=== PATIENT | female | born 1945 | race Caucasian/White ===

== ENCOUNTER 2020-01-21 11:58 | Inpatient (IN) | payer MEDICARE, MEDICAID ==
[2020-01-21] VITALS (7 sets, daily range): BP systolic 97–133; BP diastolic 61–77
[~2020-01-21] VITALS: Ht 152.4 cm; Wt 65.8 kg
--- NOTE | ~2020-01-21 | EMS ---
[place] [address] EMS Patient Care Report Name: ANISHA FRANCO Room: [address] IN [facility]#: [id number] Admission: 01/21/20 Attend Phys: Marya Stahl MD Discharge: Date of : 45 Report #: [id number] THIS REPORT FOR: //name// Report Transmitted: 01/21/2020 14:07 EMS Care Summary [facility]ident [id number] @ 01/21/2020 10:[address] [place] [address] Patient JAMES FRANCO Female, 74 Years 1945 Patient Address [address] [place] [address] Patient History Dementia,Bipolar II Disorder,Hypothyroidism,Intellectual Disabilities, Patient Allergies Other drug allergy, Patient Medications None Reported, Chief Complaint Low Oxygen Saturation Disposition Transported [place] Dispatch Reason Breathing Problem Transported To [facility] Narrative Dispatch: [facility] was dispatched for a female patient who has a low oxygen saturation with a possible covid exposure. Med 1 copied tones and had a delayed en route time due to full covid-19 PPE precautions. Med 1 went en route emergent [place] [address] EMS Patient Care Report Name: ANISHA FRANCO Room: [address] IN [facility]#: [id number] Admission: 01/21/20 Attend Phys: Marya Stahl MD Discharge: Date of : 45 Report #: [id number] Chief Complaint/Condition: Med 1 arrived on scene to find the patient sitting upright in her chair in the living room. Patient is non verbal/incomprehensible sounds (normal for patient). The alf nurses stated that the patient had an O2 reading of 82% and it "just dropped below 88%." Patient presented with rhonchus lung sounds bilaterally, tachypnea, and an O2 saturation of 89% on room air (EMS pulse oximeter). History of present illness/KO: Per staff on scene, the patient presented with lowered oxygen saturation and possible covid-19 exposure. After attempting to receive multiple sets of vitals they found her oxygen saturation to be at 82% and, per their protocol, 911 is to be called. It was unknown how long the patient had increased respirations or an increased heart rate. Assessment: Airway: Clear, equal, self maintained. Breathing: Rhonchi bilaterally, non labored, tachypnea noted. Circulation: Skin is pink, warm, and dry. Strong radial pulse. Disability: A&OX1 (normal for patient, but increased lethargy noted later during contact). Exposure: No life threats were found. See section for further. Reason for ambulance: Patient lives in a alf and her nurse stated that the patients O2 saturation dropped below 88% and she needed to be transported for further assessment. The initial patient plan was for transport to [facility]. Due to a possible cardiac event, that destination was changed to [place]. EMS then diverted to [place] due to increased patient lethargy, sustained SVT, and no IV access despite multiple attempts. Lights and sirens utilized en route to facility due to patient presentation. Treatments: ALS assessment. ETCO2 canula at 6 liters delivered successfully. Obstructed waveform noted. Duoneb treatment performed in ambulance with open doors and ventilation system running. 3 IV attempts made unsuccessfully. 12 lead EKG showing SVT with possible underlying AFIB RVR. Patient had continuous arm and leg movements which made obtaining a clear EKG picture difficult. See section for further. Summary: [facility] was dispatched for a female patient who had a low oxygen saturation and a possible covid exposure. Med 1 had a delayed en route time due to covid PPE precautions. Med 1 went en route emergent and arrived on scene. Med 1 arrived on scene to find the patient sitting upright in her recliner. Patient had a cough and a surgical mask was immediately placed onto the patient. My partner attached the pulse ox and it read 89%. The in home nurse stated she wanted the patient transported for further assessment and treatment. The patient was placed onto our cot and was placed on 6 [place] [address] EMS Patient Care Report Name: ANISHA FRANCO Room: [address] IN [facility]#: [id number] Admission: 01/21/20 Attend Phys: Marya Stahl MD Discharge: Date of : 45 Report #: [id number] oxygen via ETCO2 nasal canula. The patient was then placed into the ambulance for further assessment. A 12 lead EKG was taken, and SVT was noted. Patient had rhonchus lung sounds and a duoneb treatment was started while the doors were open. We began our transport to [facility] following completion of the duoneb treatment. During transport, my partner and I attempted multiple times at gaining vascular access and did not succeed. Patient started to become lethargic (sustained SVT) during transport so we decided to upgrade and change destinations to [place] [place] in [place] due to closer cardiac care. Patient had reached a heart rate in the 170's and started to become lethargic. Radio report was given and no questions or orders were given. Med 1 arrived at destination and report was given to the RN. The patient was sheet transferred over to bed. Signatures and paperwork received, Med 1 returned back to [facility]. Initial Vitals @11:26R: 30,EtCO2: 43, @11:52P: 39,R: 29,BP: 108/61,EtCO2: 25,SpO2: 81, @11:41P: 146,R: 26,EtCO2: 11, @11:36P: 148,R: 32,BP: 117/74,EtCO2: 38,VT Suspected: false @11:20R: 22,EtCO2: 44,VT Suspected: false @11:46P: 161,R: 17,BP: 108/71,EtCO2: 30,SpO2: 79,VT Suspected: false @11:06P: 0,R: 35,BP: 146/96,GCS: 10,EtCO2: 17,Revised Trauma: 10,VT Suspected: false @11:11P: 164,R: 32,EtCO2: 43, @11:19MI Suspected: false Assessments @11:10MENTAL:Confused,Person Oriented,SKIN:HEENT:LUNG SOUNDS:ABDOMEN:PELVIS//GI:EXTREMITIES:PULSE:Radial: 2+ Normal,NEURO:@11:30MENTAL:Confused,Person Oriented,SKIN:HEENT:LUNG SOUNDS:ABDOMEN:PELVIS//GI:EXTREMITIES:PULSE:Radial: 2+ Normal,NEURO: Impression COVID-19 - Exposure to confirmed patient Procedures @11:1912-Lead ECGResponse: UnchangedSucceeded@11:2012-Lead ECGResponse: UnchangedSucceeded@11:3612-Lead ECGResponse: UnchangedSucceeded@10:58ALS AssessmentResponse: UnchangedFailed@12:21Saline Lock 0cc (20 ga) Site: Antecubital-LeftResponse: UnchangedFailed@12:21Saline Lock 0cc (20 ga) Site: Forearm-RightResponse: UnchangedFailed@11:07Oxygen FlowRate: 6 Device: CO2 Nasal Cannula Response: UnchangedSucceeded@12:22Saline Lock 0cc (20 ga) Site: Hand-RightResponse: UnchangedFailed@11:08Duoneb - 3 Milliliters (ml) - NebulizedResponse: Improved@11:00Surgical Mask on PatientResponse: [place] [address] EMS Patient Care Report Name: ANISHA FRANCO Room: [place] [address] ADM IN [facility]#: [id number] Admission: 01/21/20 Attend Phys: Marya Stahl MD Discharge: Date of : 45 Report #: [id number] 10:49,Call Received 10:49,Dispatched 10:54,En Route 10:57,On Scene 10:58,At Patient 10:58,ALS Assessment,Response: UnchangedFailed, 11:00,Surgical Mask on Patient,Response: Unchanged 11:06,BP: 146/96 M,PULSE: 0,RR: 35 R,SPO2: Ox,ETCO2: 17 ,BG: ,PAIN: ,GCS: 10, 11:07,Oxygen FlowRate: 6 Device: CO2 Nasal Cannula Response: UnchangedSucceeded, 11:08,Duoneb - 3 Milliliters (ml) - Nebulized,Response: Improved 11:11,BP: / M,PULSE: 164,RR: 32 R,SPO2: Ox,ETCO2: 43 ,BG: ,PAIN: ,GCS: , 11:19,12-Lead ECG,Response: UnchangedSucceeded, 11:19,BP: / M,PULSE: ,RR: R,SPO2: Ox,ETCO2: ,BG: ,PAIN: ,GCS: , 11:19,Depart Scene 11:20,12-Lead ECG,Response: UnchangedSucceeded, 11:20,BP: / M,PULSE: ,RR: 22 R,SPO2: Ox,ETCO2: 44 ,BG: ,PAIN: ,GCS: , 11:26,BP: / M,PULSE: ,RR: 30 R,SPO2: Ox,ETCO2: 43 ,BG: ,PAIN: ,GCS: , 11:36,12-Lead ECG,Response: UnchangedSucceeded, 11:36,BP: 117/74 M,PULSE: 148,RR: 32 R,SPO2: Ox,ETCO2: 38 ,BG: ,PAIN: ,GCS: , 11:41,BP: / M,PULSE: 146,RR: 26 R,SPO2: Ox,ETCO2: 11 ,BG: ,PAIN: ,GCS: , 11:46,BP: 108/71 M,PULSE: 161,RR: 17 R,SPO2: 79 Ox,ETCO2: 30 ,BG: ,PAIN: ,GCS: , 11:52,BP: 108/61 M,PULSE: 39,RR: 29 R,SPO2: 81 Ox,ETCO2: 25 ,BG: ,PAIN: ,GCS: , 11:56,At Destination 12:21,Saline Lock 0cc 20 ga Site: Antecubital-Left,Response: UnchangedFailed, 12:21,Saline Lock 0cc 20 ga Site: Forearm-Right,Response: UnchangedFailed, 12:22,Saline Lock 0cc 20 ga Site: Hand-Right,Response: UnchangedFailed, 12:38,Call Closed Disclaimer v1.1 Copyright 2020 [employer] This EMS Care Summary contains data elements from the applicable legal record (which may be displayed differently). It is designed to provide pertinent information for the following purposes: continuity of care, clinical quality, and state data reporting. The complete legal record is available to ED staff and administrators of the receiving hospital in [employer] Patient Tracker. All data is provided "as is."
[2020-01-21 12:47] LABS: ABSOLUTE MONOCYTES 0.6 thou/uL (0.0-1.2); ABSOLUTE NEUTROPHILS 4.3 thou/uL (1.6-8.1); BASOPHILS 0.3 %; HEMATOCRIT 35.9 % (37.0-47.0); HEMOGLOBIN 11.8 gm/dL (12.0-15.0); LYMPHOCYTES 16.9 %; MCH 31.9 pg (26.0-34.0); MCHC 32.8 g/dL (28.0-37.0); MCV 97.3 fL (80.0-100.0); MONOCYTES 9.9 %; MPV 8.8 fl. (7.2-11.1); NUCLEATED RBCS 0 /100WBC; POLYS 72.9 %; RBC 3.69 mil/uL (4.20-5.00); WBC 5.9 thou/uL (4.0-11.0)
[2020-01-21 12:50] LABS: CALCIUM 8.9 mg/dL (8.5-10.1)
[2020-01-21 12:53] LABS: APTT 29.9 Seconds (25.0-31.3); INR 1.1; PROTIME 11.6 Seconds (9.20-11.50)
[2020-01-21 13:01] LABS: ALBUMIN 2.7 g/dL (3.4-5.0); MAGNESIUM 2.1 mg/dL (1.8-2.4); TOTAL BILIRUBIN 0.2 mg/dL (<0.1-1.0); TOTAL PROTEIN 6.7 g/dL (6.4-8.2)
[2020-01-21 13:10] LABS: URINE BILIRUBIN NEGATIVE (Negative); URINE BLOOD 2+ (Negative); URINE CLARITY CLEAR; URINE COLOR YELLOW; URINE GLUCOSE-RANDOM NEGATIVE (Negative); URINE KETONES NEGATIVE (Negative); URINE LEUKOCYTES-REFLEX NEGATIVE (Negative); URINE NITRITE-REFLEX NEGATIVE (Negative); URINE PROTEIN NEGATIVE (Negative); URINE SPECIFIC GRAVITY 1.025 (1.005-1.030); URINE UROBILINOGEN 0.2 E.U./dl (0.2-1.0)
[2020-01-21 13:17] LABS: BE 0.7 mmol/L (-2 to +3); PCO2 42.7 mmHg (35.0-45.0); PO2 83.5 mmHg (75.0-100.0); pH 7.398 (7.340-7.450)
[2020-01-21 13:18] LABS: PLATELET COUNT* 73 thou/uL (150-400)
[2020-01-21 13:25] LABS: AMORPHOUS URATES Moderate /LPF (None Seen); BACTERIA-REFLEX 1-9 Few /HPF (None Seen); HYALINE CASTS 0-3 Few /LPF (None Seen); MUCUS 0-3 Light strn/LPF (None Seen); SQUAMOUS NONE SEEN /LPF (0-3); URINE RBC 0-2 Rare /HPF (0-2); URINE WBC-REFLEX None Seen /HPF (0-5)
--- NOTE | 2020-01-21 13:45 | NUR ---
ANJANA VELEZ [phone]. THIS IS PT'S PRIMARY CAREGIVER WHO IS WILLING TO ANSWER ANY QUESTIONS.
--- NOTE | 2020-01-21 13:50 | EKG ---
[place] [address] ELECTROCARDIOGRAM REPORT Name: DANIEL FRANCOLENE Room: [facility]#: [id number] Admission: Attend Phys: Discharge: Date of : 45 Date of Service: 01/21/20 1203 Report #: [id number] THIS REPORT FOR: //name// [facility] ED Test Date: 2020-01-21 Test Time: 12:03:30 Pat Name: JAMES FRANCO Department: Room: Gender: F Therapy Tech: [facility] : 1945 Requested By: Nancy Mon Order Number: [id number] MD: Merrick Vigil Measurements Intervals [place] Rate: 168 P: HI: QRS: 31 QRSD: 76 T: 213 QT: 280 QTc: 469 Interpretive Statements Atrial fibrillation with rapid V-rate Abnormal R-wave progression, early transition Repolarization abnormality, prob rate related Baseline wander in lead(s) II,III,aVR,aVL,aVF,V1,V2,V3,V4,V5,V6 No previous ECG available for comparison Electronically Signed On 01-21-2020 13:50:07 CDT by Merrick Vigil [email or web address] <ELECTRONICALLY SIGNED> By: Merrick Vigil MD, FACC 01/21/20 1350 1203 1203 Merrick Vigil MD, FACC /EPI
[2020-01-21] MEDS ORDERED: MONTELUKAST SODI4 M1 PO (14:05)
[2020-01-21] MEDS ORDERED: NOXIFOL-D32500 UNIT PO (14:05)
[2020-01-21] MEDS ORDERED: DESYREL150 MG PO (14:05)
[2020-01-21] MEDS ORDERED: ALLOPURINOL 10100 M3 PO (14:06)
[2020-01-21] MEDS ORDERED: DIVALPROEX SOD250 M1 PO (14:06)
[2020-01-21] MEDS ORDERED: ELIQUIS5 MG PO (14:06)
[2020-01-21] MEDS ORDERED: KEPPRA XR750 MG PO (14:07)
[2020-01-21] MEDS ORDERED: OYST CAL D (14:07)
[2020-01-21] MEDS ORDERED: GAVILAX8.5 GM PO (14:08)
[2020-01-21] MEDS ORDERED: FLONASE 0.05%50 MCG NARES (14:09)
[2020-01-21 20:23] LABS: BE 4.1 mmol/L (-2 to +3); PO2 122.7 mmHg (75.0-100.0); pH 7.391 (7.340-7.450)
[2020-01-21 20:31] LABS: PCO2 50.5 mmHg (35.0-45.0)
[2020-01-21] MEDS ORDERED: DILTIAZEM ER180 M2 PO (21:15)
[2020-01-21] MEDS ORDERED: ARICEPT 5 MG TAB5 MG PO (21:16)
[2020-01-21] MEDS ORDERED: LEVOTHYROXINE100 MC1 PO (21:18)
[2020-01-21] MEDS ORDERED: SERTRALINE HCL100 MG PO (21:19)
[2020-01-21] MEDS ORDERED: ALLEGRA ALLERG180 MG PO (21:20)
[2020-01-21] MEDS ORDERED: PULMICORT0.25 MG/2 INH (21:23)
--- NOTE | 2020-01-21 21:32 | NUR ---
ADMITTED TO ROOM 233 FROM ER. PT SEEN BY HOSPITALIST RELATED TO RAPID RESP RATE AND L0W OXYGEN LEVEL ON SUPPLEMENTAL 02. PT PLACED ON BIPAP AND HAS RESTED BETTER WITH RESPIRATORY RATE OF 22/MINUTE. CARDIOLOGY AND PULMONOLOGY CONSULTATIONS CALLED TO ANSWERING SERVICES. PT PLACED ON CARDIZEM DRIP. I HAVE UPDATED TROLLEY COACH DRIVER RN, PATIENT SISTER AND CARE PROVIDER
[2020-01-21 22:15] LABS: ABSOLUTE LYMPHOCYTES 0.6 thou/uL (0.8-5.3); ABSOLUTE MONOCYTES 0.2 thou/uL (0.0-1.2); ABSOLUTE NEUTROPHILS 3.5 thou/uL (1.6-8.1); BASOPHILS 0.2 %; EOSINOPHILS 0.1 %; HEMATOCRIT 35.3 % (37.0-47.0); HEMOGLOBIN 11.7 gm/dL (12.0-15.0); LYMPHOCYTES 13.2 %; MCH 32.4 pg (26.0-34.0); MCHC 33.1 g/dL (28.0-37.0); MCV 97.7 fL (80.0-100.0); MONOCYTES 5.1 %; MPV 8.9 fl. (7.2-11.1); NUCLEATED RBCS 0 /100WBC; PLATELET COUNT* 57 thou/uL (150-400); POLYS 81.4 %; RBC 3.62 mil/uL (4.20-5.00); RDW-CV 16.1 % (10.5-14.5); WBC 4.2 thou/uL (4.0-11.0)
[2020-01-21 22:22] LABS: CALCIUM 8.3 mg/dL (8.5-10.1); CREATININE 0.9 mg/dL (0.6-1.3); MAGNESIUM 1.8 mg/dL (1.8-2.4)
[2020-01-22] VITALS (21 sets, daily range): BP systolic 89–177; BP diastolic 59–105
[2020-01-22 04:33] LABS: ABSOLUTE LYMPHOCYTES 0.7 thou/uL (0.8-5.3); ABSOLUTE MONOCYTES 0.1 thou/uL (0.0-1.2); ABSOLUTE NEUTROPHILS 4.3 thou/uL (1.6-8.1); BASOPHILS 0.2 %; HEMATOCRIT 35.9 % (37.0-47.0); HEMOGLOBIN 11.9 gm/dL (12.0-15.0); LYMPHOCYTES 14.5 %; MCH 32.4 pg (26.0-34.0); MCHC 33.2 g/dL (28.0-37.0); MCV 97.3 fL (80.0-100.0); MONOCYTES 2.1 %; MPV 9.2 fl. (7.2-11.1); NUCLEATED RBCS 0 /100WBC; PLATELET COUNT* 58 thou/uL (150-400); POLYS 83.2 %; RBC 3.69 mil/uL (4.20-5.00); RDW-CV 16.2 % (10.5-14.5); WBC 5.1 thou/uL (4.0-11.0)
[2020-01-22 04:48] LABS: ALBUMIN 2.5 g/dL (3.4-5.0); CALCIUM 8.5 mg/dL (8.5-10.1); POTASSIUM 4.4 mmol/L (3.5-5.1); TOTAL BILIRUBIN 0.3 mg/dL (<0.1-1.0); TOTAL PROTEIN 6.6 g/dL (6.4-8.2)
--- NOTE | 2020-01-22 06:49 | NUR ---
PT IS ABLE TO COMMUNICATE HER NEEDS TO STAFF WITH A LOT OF DIFFICULTY; SHE IS A+OX0 AND MOSTLY NON-VERBAL; MDs ARE AWARE. SHE CAN OCCASIONALLY FOLLOW COMMANDS AND MOVES AROUND A LOT WHEN SHE IS UNCOMFORTABLE; SHE DOES NOT APPEAR TO BE IN PAIN AND HAS NOT INDICATED THAT SHE WANTS PAIN MEDS WHEN ASKED. PURE WICK IN PLACE AND WORKING WELL. CONTINUOUS BIPAP, PER MD ORDER, MAINTAINED; TOLERATED WELL BY PT UP TO THIS TIME. MANUAL BPs AND NO PULSE OX DUE TO PT MOVING ALMOST CONSTANTLY; MDs AWARE. PULMONOLOGY AND CARDIOLOGY FOLLOWING.
[2020-01-22 08:35] LABS: BE 2.9 mmol/L (-2 to +3); PCO2 49.1 mmHg (35.0-45.0); pH 7.384 (7.340-7.450)
[2020-01-22 08:39] LABS: PO2 142.3 mmHg (75.0-100.0)
--- NOTE | 2020-01-22 09:49 | NUR ---
PT ADMITTED TO TELE UNIT COVID POSITIVE. NURSING STAFF INFORMS THAT THE PT IS 'A&O, BUT MOSTLY NON-VERBAL'. PT RESIDES AT A PRISON. YADI SPOKE TO MERCEDES YEUNG AT THE PRISON AND SHE INFORMS THAT THE PT REQUIRES ASSISTANCE WITH ALL CARES. PT USES A WHEELCHAIR FOR MOBILITY, BECAUSE SHE OFTEN FORGETS HER WALKER AND FALLS. PT ABLE TO TRANSFER WITH ASSIST X1 SHE IS SHAKY WHEN STANDING. PT ABLE TO FEED HERSELF WITH ENCOURAGEMENT AND QUES. PT REQUIRES 2L O2 AT [facility] PRIOR TO ADMIT AND HAD SLEEP STUDY RECENTLY AND RESULTS INDICATED THAT PT NEEDS A CPAP AT [facility] THAT [facility] RN WILL ARRANGE FOR PT AT D/C. PT'S SISTER TORRES ERAZO IS HER GUARDIAN. YADI SPOKE TO TORRES AND SHE CONFIRMS THAT SHE IS HE PT'S GUARDIAN. ANY DECISISON REGARDING THIS PT'S CARE NEED TO BE APPROVED BY TORRES. PLAN FOR PT TO RETURN TO HER PRISON AT D/C. CM WILL REMAIN AVAILABLE TO ASSIST AND FOLLOW FOR D/C PLANNING. TORRES ERAZO (SISTER/GUADIAN) PHONE: [phone] MERCEDES YEUNG AT PRISON PHONE: [phone]
--- NOTE | 2020-01-22 14:30 | NUR ---
PATIENT TRANSFERED TO ICU BED 1 VIA BED. REPORT GIVEN TO PINO. PATIENT JEWELRY PACKED AND SENT WITH PATIENT. PATIENT REMAINS IN AFIB AND TACHYCARDIC, PATIENT ON CARDIZEM DRIP TITRATED TO 20ML/HR AND HAD ONE TIME DOSE OF DIGOXIN AND LASIX ORDERED. PATIENT ON 3L/NC BY RT FOR TRANSFER, BIPAP MOVED TO ICU ROOM. PATIENT HALF-WAY NURSE NOTIFIED OF TRANSFER.
[2020-01-22 16:06] LABS: CALCIUM 8.6 mg/dL (8.5-10.1); CREATININE 1.1 mg/dL (0.6-1.3)
[2020-01-22 16:07] LABS: POTASSIUM 4.8 mmol/L (3.5-5.1)
--- NOTE | 2020-01-22 19:47 | NUR ---
PT RECEIVED FROM TELE AT 1430. ALERT, EXTREMELY FIDGETY AND PULLING ON HER BIPAP MASK BREAKING IT APART. ATIVAN 0.5 MG GIVEN ONCE FOR AGITATION. VSS. TWO ADDITIONAL IV LINES ESTABLISHED BY MERCEDES JONES. PICC POSTPONED PT WAS RESTLESS. ECG SHOWS AFIB RANGING 80-140s. CARDIZEM DRIP CONTD AT 20 MG/HR. MERCEDES YEUNG AT [facility] UPDATED.
[2020-01-23] VITALS (11 sets, daily range): BP systolic 114–163; BP diastolic 55–130
--- NOTE | 2020-01-23 05:20 | NUR ---
ASSUMED CARE AT 1900H, ON BIPAP AT 35% AND TOLERATED BUT RESTLESS AND AGITATED AT TIMES. ASKED FOR PAIN AND SAID YES. PRN MEDS GIVEN FOR PAIN AND ANXIETY. ON CARDIZEM DRIP AND TITRATED. NO DISTRESS AND NO SIEZURE NOTED. PT ALWAYS FAVOR THE LEFT SIDE. CONTINUE MONITORING AND TOWARD GOALS. LATEST CARDIZEM AT 5MG/HR.
[2020-01-23 05:41] LABS: HEMATOCRIT 36.9 % (37.0-47.0); HEMOGLOBIN 12.2 gm/dL (12.0-15.0); MCH 32.3 pg (26.0-34.0); MCHC 33.1 g/dL (28.0-37.0); MCV 97.5 fL (80.0-100.0); MPV 9.9 fl. (7.2-11.1); RBC 3.79 mil/uL (4.20-5.00); RDW-CV 15.9 % (10.5-14.5)
[2020-01-23 05:54] LABS: ALBUMIN 2.7 g/dL (3.4-5.0); CALCIUM 8.6 mg/dL (8.5-10.1); MAGNESIUM 2.2 mg/dL (1.8-2.4); POTASSIUM 4.4 mmol/L (3.5-5.1); TOTAL BILIRUBIN 0.4 mg/dL (<0.1-1.0); TOTAL PROTEIN 6.8 g/dL (6.4-8.2)
--- NOTE | 2020-01-23 10:07 | NUR ---
RIGHT BASILIC VESSEL ACCESSED FOR 5 CUBAN DUAL LUMAN PICC. LINE PRE-TRIMMED TO 38CM AND ADVACNED TO THE ZERO WAYLON WITH NO RESISTANCE MET. UPPER ARM CIRCUMFERENCE ABOVE INSERTION SITE=9 1/2". SHERLOCK MAGNET AND 3 CG CONFIRMATION NOT OBSERVED DUE TO PATIENT IN A-FIB. POST PROCEDURE CHEST X-RAY SHOWS LOWER SVC TERMINATION OF CATHATER TIP. GUIDEWIRE REMOVED, LINE FLUSHED AND INSERTION SITE DRESSED. REPORT REMI PORTILLO RN.
--- NOTE | 2020-01-23 10:45 | NUR ---
BIPAP REMOVED PER PULM. PT PLACED ON O2@5L. PT TALKING AND ALERT. MITTENS REMOVED. WILL CONTINUE TO MONITOR
--- NOTE | 2020-01-23 14:41 | NUR ---
ICU rounds: Off bipap. On Remdisivir. Anxious. Plan return to [facility] [place].
--- NOTE | 2020-01-23 18:25 | NUR ---
PT RESTING IN BED THROUGHOUT SHIFT. PT RESTLESS AND REPOSTIONS FREQUENTLY. PT OFF BIPAP THIS AM. O2@3L NC. AFIB ON MONITOR. PT ABLE TO MAKE NEEDS KNOWN AND ASKS FOR DRINKS, TO GET UP AND TO CHANGE THE TV CHANNEL. PT FOLLOWS COMMANDS WITH MULTIPLE REDIRECTION. PICC PLACED THIS AM. ENCHANCED PRECAUTIONS FOR COVID. SISTER AND PRISON RN UPDATED ON PT STATUS
[2020-01-24] VITALS (23 sets, daily range): BP systolic 75–180; BP diastolic 45–107
--- NOTE | 2020-01-24 06:02 | NUR ---
PT. PROGRESSING TOWARDS GOALS. CARDIZEM GTT TURNED OFF AT 0210. INCONTINENT OF BOWEL X2 THIS SHIFT. REMAINS ON COVID ISOLATION. WILL CONTINUE TO MONITOR.
[2020-01-24 06:05] LABS: ABSOLUTE LYMPHOCYTES 0.7 thou/uL (0.8-5.3); ABSOLUTE MONOCYTES 0.2 thou/uL (0.0-1.2); ABSOLUTE NEUTROPHILS 5.3 thou/uL (1.6-8.1); BASOPHILS 0.1 %; HEMATOCRIT 32.2 % (37.0-47.0); HEMOGLOBIN 10.8 gm/dL (12.0-15.0); LYMPHOCYTES 11.3 %; MCH 32.4 pg (26.0-34.0); MCHC 33.6 g/dL (28.0-37.0); MCV 96.6 fL (80.0-100.0); NUCLEATED RBCS 0 /100WBC; PLATELET COUNT* 77 thou/uL (150-400); POLYS 84.6 %; RBC 3.34 mil/uL (4.20-5.00); RDW-CV 15.6 % (10.5-14.5); WBC 6.3 thou/uL (4.0-11.0)
[2020-01-24 06:51] LABS: ALBUMIN 2.3 g/dL (3.4-5.0); CREATININE 0.9 mg/dL (0.6-1.3); MAGNESIUM 1.9 mg/dL (1.8-2.4); POTASSIUM 4.1 mmol/L (3.5-5.1); TOTAL BILIRUBIN 0.4 mg/dL (<0.1-1.0); TOTAL PROTEIN 5.6 g/dL (6.4-8.2)
[2020-01-24 08:29] LABS: BE 1.6 mmol/L (-2 to +3); PCO2 41.1 mmHg (35.0-45.0); PO2 122.3 mmHg (75.0-100.0); pH 7.422 (7.340-7.450)
--- NOTE | 2020-01-24 15:02 | NUR ---
ICU rounds: Covid positive. Return to [facility] [place]. Therapies to see
--- NOTE | 2020-01-24 16:07 | CON ---
[address] [address] CONSULTATION Name: ANISHA FRANCO Room: [address] IN [facility]#: [id number] Admission: 01/21/20 Attend Phys: Marya Stahl MD Discharge: Date of : 45 Report #: [id number] THIS REPORT FOR: //name// cc: Sol Hutchison MD, Jayne MD ~ THIS REPORT FOR: //name// CC: Sol Stahl DATE OF SERVICE: 01/22/2020 CARDIOLOGY CONSULTATION HISTORY OF PRESENT ILLNESS: The patient is a 74-year-old white female, [facility] resident with movement disorder, who was admitted to [facility] last night with shortness of breath. The patient is noncommunicative. She currently lives in a [facility]. She has severe movement disorder and is noncommunicative. She apparently is able to swallow food and medications. The patient was brought to the Emergency Room yesterday by ambulance after she was noted to be short of breath. She was noted to be tachycardic and hypoxic. She was found to be in atrial fibrillation. Cardiology consultation was requested. Unfortunately, there are no family members available. The patient is noncommunicative. PAST MEDICAL HISTORY: Cannot be obtained. MEDICATIONS: At the [facility] included trazodone, allopurinol, Eliquis, Keppra, Flonase. ALLERGIES: She has no known drug allergies. SOCIAL HISTORY: Cannot be obtained. FAMILY HISTORY: Unobtainable. PHYSICAL EXAMINATION: GENERAL: Reveals an elderly white female, lying in bed. She is very agitated. VITAL SIGNS: Her blood pressure 130/80, pulse is 110 and irregular. She is afebrile. HEENT: She was anicteric. Conjunctivae pink. Mucous membranes were dry. NECK: Veins do not appear distended. CHEST: Revealed coarse breath sounds bilaterally. CARDIOVASCULAR: Irregular, tachycardia. ABDOMEN: Soft. EXTREMITIES: Had no edema. SKIN: [place] [address] CONSULTATION Name: ANISHA FRANCO Room: [address]#: [id number] Admission: 01/21/20 Attend Phys: Marya Stahl MD Discharge: Date of : 45 Report #: [id number] RADIOLOGICAL DATA: Her ECG on admission showed atrial fibrillation, rapid ventricular response rate, nonspecific ST and T-wave changes. Her workup in the Emergency Room last night included a chest x-ray that showed atelectasis, right hemidiaphragm is elevated, cardiomegaly, small bilateral effusions. LABORATORY DATA: Sodium 147, BUN 23, creatinine 1.0. Her lactic acid was 3.0. TSH 1.0. White blood cell count 5.1, hematocrit 35.9, platelet count is only 58,000. IMPRESSION AND RECOMMENDATIONS: 1. COVID-19 with pneumonia and hypoxia. 2. Atrial fibrillation. Onset unclear. Recommend rate control. 3. Thrombocytopenia. 4. Movement disorder. Patient is nonverbal. 5. History of seizure disorder. <ELECTRONICALLY SIGNED> By: Merrick Vigil MD, FACC 01/24/20 1607 1444 [id number] Vigil MD, FACC /nt
--- NOTE | 2020-01-24 19:47 | NUR ---
ASSESSMENT CHARTED. PATIENT WENT BACK INTO AFIB RVR. CARDIOLOGY CONTACTED AND NEW ORDER RECEIVED FOR IV CARDIZEM. PATIENTS HEART RATE IS CURRENTLY IN THE 60'S. PRECEDEX STARTED FOR AGGITATION. PATIENT IS CURRENTLY NPO SHE BECAME EXTREMELY WHEEZY AFTER EVALUATION. CHEST XRAY OBTAINED AND PER PULM IS TO BE NPO.
[2020-01-25] VITALS (26 sets, daily range): BP systolic 112–184; BP diastolic 71–154
--- NOTE | 2020-01-25 07:37 | NUR ---
ASSUMED PATIENT CARE AT 1900. ASSESSMENTS COMPLETED CHARTED. CARDIAC MONITORING IN PLACE. CARDIZEM DRIP TURNED OFF DURING SHIFT DUE TO LOW PATIENT HR, PHYSICIAN NOTIFIED, NEW ORDERS RECEIVED AND FOLLOWED. PATIENT REMAINS IN COVID ISOLATION. FALL PRECAUTIONS IN PLACE FOR PATIENT SAFETY. BED LOCKED AND IN LOWEST POSITION. BED ALARM ON. CLWR.
[2020-01-25 08:41] LABS: ABSOLUTE LYMPHOCYTES 0.7 thou/uL (0.8-5.3); ABSOLUTE MONOCYTES 0.2 thou/uL (0.0-1.2); BASOPHILS 0.5 %; HEMATOCRIT 32.1 % (37.0-47.0); HEMOGLOBIN 10.7 gm/dL (12.0-15.0); LYMPHOCYTES 16.8 %; MCH 31.7 pg (26.0-34.0); MCHC 33.4 g/dL (28.0-37.0); MONOCYTES 5.7 %; MPV 10.7 fl. (7.2-11.1); NUCLEATED RBCS 0 /100WBC; PLATELET COUNT* 85 thou/uL (150-400); RBC 3.38 mil/uL (4.20-5.00); RDW-CV 15.3 % (10.5-14.5)
[2020-01-25 08:44] LABS: ALBUMIN 2.2 g/dL (3.4-5.0); CALCIUM 7.8 mg/dL (8.5-10.1); CREATININE 0.9 mg/dL (0.6-1.3); TOTAL BILIRUBIN 0.4 mg/dL (<0.1-1.0); TOTAL PROTEIN 5.3 g/dL (6.4-8.2)
[2020-01-26] VITALS (25 sets, daily range): BP systolic 108–150; BP diastolic 52–106
--- NOTE | 2020-01-26 05:16 | NUR ---
ASSUMED PATIENT CARE AT 1900. ASSESSMENTS COMPLETED CHARTED. CARDIAC MONITORING IN PLACE FOR PATIENT SAFETY. FALL PRECAUTIONS IN PLACE FOR PATIENT SAFETY. BED ALARM ON. BED LOCKED AND IN LOWEST POSITION. CLWR. NO BOWEL MOVEMENTS DURING SHIFT.
[2020-01-27] VITALS (20 sets, daily range): BP systolic 85–213; BP diastolic 49–189
[2020-01-27 04:58] LABS: HEMATOCRIT 30.8 % (37.0-47.0); HEMOGLOBIN 10.4 gm/dL (12.0-15.0); MCH 32.1 pg (26.0-34.0); MCHC 33.8 g/dL (28.0-37.0); MCV 94.9 fL (80.0-100.0); RBC 3.24 mil/uL (4.20-5.00); RDW-CV 15.8 % (10.5-14.5); WBC 8.6 thou/uL (4.0-11.0)
[2020-01-27 05:11] LABS: ALBUMIN 2.2 g/dL (3.4-5.0); CALCIUM 7.8 mg/dL (8.5-10.1); CREATININE 1.3 mg/dL (0.6-1.3); POTASSIUM 3.8 mmol/L (3.5-5.1); TOTAL BILIRUBIN 0.4 mg/dL (<0.1-1.0); TOTAL PROTEIN 5.2 g/dL (6.4-8.2)
--- NOTE | 2020-01-27 06:36 | NUR ---
ASSESSMENTS CHARTED. NO SIGNIFICANT CHANGE WITH PATIENT STATUS OVERNIGHT. PRECEDEX INFUSING AT 0.5 MCG/KG. VSS.
--- NOTE | 2020-01-27 16:00 | NUR ---
ICU ROUNDS-PER NURSING PT.IMPROVING. NEEDS TO BE FED. PT.CAN FEED SELF AT [facility] WITH ENCOURAGEMENT. PT.USES WC FOR MOBILITY AT [facility] BUT CAN TRANSFER INDEPENDENTLY. PLAN IS FOR PT.TO RETURN TO [facility] AT DISCHARGE IF STRONG ENOUGH.
--- NOTE | 2020-01-27 17:35 | NUR ---
PT RESTING IN BED THROUGHOUT SHIFT. PT REPOSTIONS SELF FREQUENTLY. HAS NONPURPOSEFUL JERKING MOVEMENTS BUT DOES NOT ATTEMPT TO PULL AT ANY LINES OR TUBES. PT ABLE TO MAKE NEEDS KNOWN AND ASKS FOR DRINKS ETC. POOR APPETITE,DENIES NAUSEA. PT FED MEALS WHILE SITTING UPRIGHT JUAREZ CATH DRAINING CLEAR YELLOW URINE. REMAINS IN ENCHANCED PRECAUTIONS FOR COVID. VSS. AFEBRILE
[2020-01-28] VITALS (14 sets, daily range): BP systolic 76–200; BP diastolic 42–145
[2020-01-28 04:14] LABS: HEMATOCRIT 32.8 % (37.0-47.0); MCH 31.6 pg (26.0-34.0); MCHC 33.4 g/dL (28.0-37.0); MCV 94.5 fL (80.0-100.0); MPV 9.7 fl. (7.2-11.1); RBC 3.47 mil/uL (4.20-5.00); WBC 13.9 thou/uL (4.0-11.0)
[2020-01-28 04:33] LABS: ALBUMIN 2.6 g/dL (3.4-5.0); CALCIUM 8.5 mg/dL (8.5-10.1); CREATININE 1.1 mg/dL (0.6-1.3); MAGNESIUM 1.9 mg/dL (1.8-2.4); POTASSIUM 3.9 mmol/L (3.5-5.1); TOTAL BILIRUBIN 0.6 mg/dL (<0.1-1.0); TOTAL PROTEIN 5.6 g/dL (6.4-8.2)
--- NOTE | 2020-01-28 05:11 | NUR ---
ASSUMED PATIENT CARE AT 1900. PATIENT ALERT TO SELF AND AWARE THAT SHE IS IN THE HOSPITAL. LOTS OF JERKY MOVEMENTS NOTED. PATIENT DID NOT VERBALIZE ANY COMPLAINTS OF PAIN TO THIS RN. TOLERATED BIPAP VERY WELL OVERNIGHT. PICC LINE PATENT. JUAREZ CATH PATENT TO DEPENDENT DRAINAGE. RN ASSESSMENTS COMPLETED DOCUMENTED. PATIENT REMAINS IN ISOLATION FOR COVID.
--- NOTE | 2020-01-28 14:36 | NUR ---
Nutrition: Pt admitted with COVID. Assessed for LOS. On Chopped diet. Wt: 155#. Bipap for sleep. BG ok, albumin 2.6, prealbumin 18.1. From a pen[facility]iary. H/o afib. No nutrition interventions at this time. Low nutrition risk as long as eating well.
--- NOTE | 2020-01-28 15:00 | NUR ---
ICU ROUNDS: PT.NOW TELE STATUS. REAMINS IN ISOLATION FOR COVID POSITIVE. WEARS BIPAP AT NIGHT AND O2 DURING THE DAY. PER ADMISSION CM NOTE, RN AT [facility] WILL ORDER CPAP FOR PT.AT DISCHARGE. HAS PICC LINE AND JUAREZ.
--- NOTE | 2020-01-28 18:48 | NUR ---
pt remains the same teley status but in icu no icu care being done for pt pt was cooperative during shift ativan given x1 for agitation rested comfortably after consumed all food for every meal no s/s of asipration assessment as follows pt remains on bipap at night and nasal cannula during the day update given to jail
[2020-01-29 00:01] VITALS: BP 117/53
[2020-01-29 04:00] VITALS: BP 125/55
[2020-01-29 04:06] LABS: HEMATOCRIT 30.2 % (37.0-47.0); MCH 31.5 pg (26.0-34.0); MCHC 32.9 g/dL (28.0-37.0); MCV 95.7 fL (80.0-100.0); MPV 9.2 fl. (7.2-11.1); RBC 3.16 mil/uL (4.20-5.00); RDW-CV 16.2 % (10.5-14.5); WBC 14.6 thou/uL (4.0-11.0)
[2020-01-29 04:19] LABS: ALBUMIN 2.6 g/dL (3.4-5.0); CALCIUM 8.4 mg/dL (8.5-10.1); CREATININE 1.1 mg/dL (0.6-1.3); MAGNESIUM 2.4 mg/dL (1.8-2.4); POTASSIUM 4.7 mmol/L (3.5-5.1); TOTAL BILIRUBIN 0.4 mg/dL (<0.1-1.0); TOTAL PROTEIN 5.8 g/dL (6.4-8.2)
[2020-01-29 08:04] VITALS: BP 124/102
--- NOTE | 2020-01-29 08:40 | NUR ---
ASSUMED PATIENT CARE AT 1900. ASSESSMENT COMPLETED CHARTED. CARDIAC MONITORING IN PLACE. PATIENT HAD 2 LARGRE BOWEL MOVEMENTS DURING SHIFT. FALL PRECAUTIONS IN PLACE FOR PATIENT SAFETY. BED LOCKED AND IN LOWEST POSITION. BED ALARM ON. HOURLY ROUNDING IN PLACE FOR PATIENT SAFETY. CLWR.
--- NOTE | 2020-01-29 09:58 | NUR ---
Crista TALKED WITH SHAYAN BROUSSARD FROM THE [facility] AT [phone]. SHE SAYS THAT ANISHA FEEDS HERSELF WITH ENCOURAGEMENT AND TRANSFERS FROM HER W/C WITH ASSIST OF 1 BUT IS VERY UNSTEADY. PT. IS DEPENDENT FOR THE REST OF ADLS. PT. DOES WELL WITH [facility] V.C. DUE TO SALAMATOF AND COUNTING TO 3 FOR ALL TRANSFERS PER SHAYAN.
[2020-01-29 12:01] VITALS: BP 145/85
--- NOTE | 2020-01-29 15:55 | NUR ---
ICU rounds: Continue enhanced precautions. Plan back to [facility] [place].
--- NOTE | 2020-01-29 17:42 | 2DMMODE ---
[place] [address] 2 D/M-MODE ECHOCARDIOGRAM Name: ANISHA FRANCO Room: [address] IN [facility]#: [id number] Admission: 01/21/20 Attend Phys: Marya Stahl, Discharge: Date of : 45 Date of Service: 01/29/20 1742 Report #: [id number] THIS REPORT FOR: cc: Sol Hutchison MD, Jayne MD [place],Tito Salcido MD [facility] ~ APPROVED REPORT Study performed: 01/29/2020 14:02:11 EXAM: Limited 2D and color flow Echocardiogram Patient Location: ICU BSA: 1.64 HR: 48 bpm BP: 126/82 mmHg Other Information Study Quality: Technically Limited Technically limited study due to uncooperative patient, inability to position patient. Indications Dyspnea Covid Positive, Respiratory Distress 2D Dimensions IVSd: 12.45 (7-11mm) LVOT Diam: 18.45 (18-24mm) LVDd: 36.92 mm PWd: 10.07 (7-11mm) Ascending Ao: 23.11 (22-36mm) LVDs: 29.08 (25-40mm) Aortic Root: 25.01 mm Pulmonary Valve PV Peak Gerard.: 1.16 m/s PV Peak Gr.: 5.39 mmHg Left Ventricle The left ventricle is normal size. There is normal LV segmental wall motion. Mild to moderate concentric left ventricular hypertrophy. Left ventricular systolic function is normal. LVEF is >70%.. Aortic Valve The aortic valve is not well visualized. No aortic regurgitation is present. There is no aortic [place] [address] 2 D/M-MODE ECHOCARDIOGRAM Name: ANISHA FRANCO Room: [address] IN [facility]#: [id number] Admission: 01/21/20 Attend Phys: Marya Stahl, Discharge: Date of : 45 Date of Service: 01/29/201741 Report #: [id number] Mitral Valve The mitral valve is normal in structure. There is no mitral valve regurgitation noted. No evidence of mitral valve stenosis. Tricuspid Valve The tricuspid valve is not well visualized. Pulmonic Valve The pulmonary valve is normal in structure. There is no pulmonic valvular regurgitation. Great Vessels The aortic root is normal in size. Pericardium There is no pericardial effusion. <Conclusion> The left ventricle is normal size. Mild to moderate concentric left ventricular hypertrophy. Left ventricular systolic function is normal. LVEF is >70%.. There is no pericardial effusion. <ELECTRONICALLY SIGNED> By: Tito Cline MD, FACC 01/29/201741 41 41 Tito Cline MD, FACC /INF
[2020-01-29 18:17] VITALS: BP 138/93
[2020-01-29 20:00] VITALS: BP 142/85
[2020-01-30] VITALS: BP 155/67
[2020-01-30 04:00] VITALS: BP 153/61
--- NOTE | 2020-01-30 04:42 | NUR ---
PT. BRADYCARDIC THROUGHOUT SHIFT, HEART RATE LOW 35. ASYMPTOMATIC. BP'S HYPERTENSIVE. SINUS ADILIA WITH PVC'S. COREG AND DILTIAZEM HELD. PT. REMAINS AT BASELINE, NO BOWEL MOVEMENTS THIS SHIFT. PT. IS ABLE TO FOLLOW COMMANDS.
[2020-01-30 05:02] LABS: HEMATOCRIT 30.9 % (37.0-47.0); HEMOGLOBIN 10.1 gm/dL (12.0-15.0); MCH 31.4 pg (26.0-34.0); MCHC 32.7 g/dL (28.0-37.0); MCV 96.2 fL (80.0-100.0); MPV 9.9 fl. (7.2-11.1); NUCLEATED RBCS 0 /100WBC; PLATELET COUNT* 156 thou/uL (150-400); RBC 3.21 mil/uL (4.20-5.00); RDW-CV 16.4 % (10.5-14.5); WBC 12.3 thou/uL (4.0-11.0)
[2020-01-30 05:24] LABS: ALBUMIN 2.8 g/dL (3.4-5.0); CALCIUM 8.7 mg/dL (8.5-10.1); MAGNESIUM 2.4 mg/dL (1.8-2.4); POTASSIUM 4.6 mmol/L (3.5-5.1); TOTAL BILIRUBIN 0.5 mg/dL (<0.1-1.0); TOTAL PROTEIN 5.9 g/dL (6.4-8.2)
[2020-01-30 05:42] LABS: ABSOLUTE LYMPHOCYTES 1.1 thou/uL (0.8-5.3); ABSOLUTE MONOCYTES 0.2 thou/uL (0.0-1.2); ABSOLUTE NEUTROPHILS 10.9 thou/uL (1.6-8.1); ANISOCYTOSIS 1+; HYPOCHROMASIA 1+; PLATELET ESTIMATE ADEQUATE; POIKILOCYTOSIS 1+
[2020-01-30 09:59] VITALS: BP 124/84
[2020-01-30 12:01] VITALS: BP 117/85
--- NOTE | 2020-01-30 12:21 | CON ---
[address] [address] CONSULTATION Name: ANISHA FRANCO Room: [address] IN ..#: [id number] Admission: 01/21/20 Attend Phys: Marya Stahl MD Discharge: Date of : 45 Report #: [id number] THIS REPORT FOR: //name// cc: Sol Hutchison MD, Jayne MD ~ THIS REPORT FOR: //name// CC: Sol Stahl DATE OF SERVICE: 01/22/2020 Consult has been requested by Dr. Stahl. INDICATION FOR CONSULTATION: Acute hypercarbic respiratory failure secondary to COVID-19. HISTORY OF PRESENT ILLNESS: A 74-year-old female with past medical history includes a history of mental retardation. The patient lives at a custodial. The patient is unable to provide history; however, according to the records, the patient was transferred here due to progressively increasing fever. The patient was reporting increasing shortness of breath as well and there was altered mental status. Symptoms developed over 3-4 days. Upon arrival, the patient was found to be in AFib with RVR, heart rate up to 159 were recorded. The patient does have a previous history of atrial fibrillation as well and is on anticoagulation with Eliquis. The patient also had significant hypercarbia with a pCO2 of 50.5. She has been placed on a BiPAP. She did maintain a normal pH. Overnight, the patient has been on a BiPAP. Her heart rate is variable, but is mostly under control with diltiazem infusion. This morning when I entered the room, the patient had taken the BiPAP apart and the individual pieces of the BiPAP mask and straps were lying separately around her bed. I did put the BiPAP together and then requested respiratory therapist to inspect the BiPAP. The patient does have some swelling of lower extremities as well. The patient is unable to provide a further history or review of systems. PAST MEDICAL HISTORY: Mental retardation, intellectually disabled, seizure disorder, asthma, atrial fibrillation. The patient is reported to be nonverbal at her baseline. She is able to take oral medications at baseline. I do not have any measure of her left ventricular ejection fraction available. CURRENT MEDICATIONS: In [facility] reviewed. HOME MEDICATIONS: At the custodial in [facility] reviewed. Note that she is on Eliquis as well as Singulair. SOCIAL HISTORY: Lives at a custodial. [place] [address] CONSULTATION Name: ANISHA FRANCO Room: [address]#: [id number] Admission: 01/21/20 Attend Phys: Marya Stahl MD Discharge: Date of : 45 Report #: [id number] smoking, ethanol abuse or drug abuse is available. ALLERGIES: CERUMENEX. FAMILY HISTORY: There is no available family history. PHYSICAL EXAMINATION: GENERAL: The patient was confused, was moving around in bed, had ripped the BiPAP apart and taken some of the pieces of the mask apart. I was able to put the BiPAP back together. She was wearing it when I left the room. VITAL SIGNS: Heart rate is last recorded at 124 with respiratory rate last recorded at 26 on the BiPAP with a blood pressure of 118/78. She has been maintaining O2 saturation with 55% FiO2 on the BiPAP. O2 saturation is 97%. Her T-max is 37.5. HEENT: Head is normocephalic and atraumatic. There is no obvious throat erythema or thrush in throat; however, the patient's throat examination is limited due to limited cooperation. NECK: Does not show raised JVP, asymmetry, mass or lymph nodes. CHEST: Symmetrical expansion on inspection and palpation. On auscultation, breath sounds are bilaterally equal but decreased. I do not hear any added sounds. HEART: Irregular, tachycardia is noted. There is a minimal systolic murmur. ABDOMEN: Soft and nontender. EXTREMITIES: Lower extremities do show 1+ edema bilaterally. There is no calf tenderness. SKIN: Dry and intact. NEUROLOGICAL EXAMINATION: Altered mental status as above. She does move all extremities bilaterally equally and spontaneously. There is no focal deficit identified. LABORATORY DATA: The patient's chest x-ray is reviewed, in fact I had a chest x-ray done last night as well and another one this morning, there is a left lower lobe infiltrate, which is consistent with secondary bacterial pneumonia in addition to COVID-19. There is some increase in reticular markings, which are likely due to COVID-19 pneumonia, mild pulmonary vascular congestion can also give this picture. However, my clinical impression is that this is more due to COVID-19. The patient's CBC shows a significant drop in platelet count to 59, in fact dropped from 73 yesterday. WBC count is normal. The patient does not have bandemia. The chemistries are in [facility] from this morning, elevation in sodium level is noted. BUN is elevated mildly to 23 but creatinine is normal at 1.6. Blood glucose is noted to be 168. LFTs are reviewed and are unremarkable. Albumin is mildly decreased to 2.5. Coagulation studies in [facility] reviewed. D-dimer is not elevated. Arterial blood gases consistent with acute hypercarbic respiratory failure in [facility] reviewed. Urinalysis in [facility] reviewed. COVID-19 screen for antigen is positive, nasal MRSA swab is pending. [address] [place] [address] CONSULTATION Name: ANISHA FRANCO Room: [address] IN [facility].#: [id number] Admission: 01/21/20 Attend Phys: Marya Stahl MD Discharge: Date of : 45 Report #: [id number] ASSESSMENT AND PLAN: 1. Acute hypercarbic respiratory failure at this time. The patient at the minimum needs to be on a BiPAP while asleep for now, in fact I will also continue BiPAP while awake. The patient will need close monitoring to evaluate as to whether we can take a BiPAP off while awake. The patient does need to be in a negative pressure room as well. I feel that adequate monitoring on the floor in a negative pressure room cannot be provided for this purpose. Therefore, I favor transferring her to the ICU in a negative pressure room. We will follow and advise as to whether the patient could be off BiPAP while awake. For now needs to be on BiPAP while asleep. 2. COVID-19 pneumonia. Agree with remdesivir and dexamethasone as currently ordered. I did order one dose of Solu-Medrol last night as well. 3. Left lower lobe infiltrate/secondary bacterial pneumonia, was on Levaquin. I added vancomycin. We will obtain a nasal swab for methicillin-resistant Staphylococcus aureus. We will watch creatinine closely. Nasal swab for methicillin-resistant Staphylococcus aureus is also ordered. If possible I recommend obtaining a sputum culture, however, this may not be possible. 4. Bronchial asthma. Does not appear to be actively bronchospastic. We will follow, if her heart rate is reasonably controlled I may add Brovana. She will continue to be in a negative pressure room. I do not think that she can use a metered dose inhaler adequately. 5. Fluid overload/hypernatremia. I feel that she has total body fluid excess with some intravascular volume depletion. I therefore did order D5W with some potassium for her. In fact the sodium level is elevated. I increased the rate today. I intend to continue this, but in order to avoid worsening of fluid overload I intend to reevaluate this afternoon and administer some Lasix as well with or without albumin. Note that there is some potassium in the fluid, in case we do not administer Lasix, I will consider cutting back or discontinuing potassium in the fluid in order to avoid development of hyperkalemia. Repeat labs for 3 p.m. are ordered. 6. Atrial fibrillation with rapid ventricular response. The patient is on a diltiazem infusion. An echocardiogram is pending at this time. 7. Edema, D-dimer is not elevated. Therefore, thromboembolism is unlikely. 8. Thrombocytopenia, likely secondary to COVID 19/sepsis, follow. 9. Remdesivir therapy. We will follow LFTs. They were normal when last reviewed. 10. High aspiration risk. Recommend keeping n.p.o. today, reassess tomorrow. 11. Deep vein thrombosis prophylaxis. Recommend SCDs. May consider holding off on anticoagulation for now considering significant thrombocytopenia. 12. History of mental retardation. The patient is critically ill at this time. [facility] [address] [place] [address] CONSULTATION Name: ANISHA FRANCO Room: M.001-P ADM IN M.R.#: [id number] Admission: 01/21/20 Attend Phys: Marya Stahl MD Discharge: Date of : 45 Report #: [id number] Total time spent providing critical care to this patient today exceeds 50 minutes. <ELECTRONICALLY SIGNED> By: Ravi Colon MD 01/30/20 1221 1130 [id number] Colon MD /nt
--- NOTE | 2020-01-30 15:19 | NUR ---
ICU rounds: Doing ok. Down to 4Lo2, bipap at night. Tele status, moving to room 200. Pulm suggested LTAC, CM contacted [facility], both are full at this time. CM to discuss further with tomorrow. Pt can return to her group regardless of her covid status.
--- NOTE | 2020-01-30 16:42 | NUR ---
FULL REPORT VERBALIZED TO MERCEDES JOHNSON. PT BEING TRANSFERED TO ROOM 200. WILL NOTIFY LONG-TERM AND LISTED CONTACTS. MEDS, CHART, AND ALL PERSONAL BELONGINGS TO BE SENT W/ PT. PICC IN PLACE. REQUESTED 2 [facility] STAFF TO BRING BED TO ICU 1 FOR TRANSFER. Claudia VALLECILLO RN.
--- NOTE | 2020-01-30 18:50 | NUR ---
I ASSUMED CARE OF THE PATIENT AN ICU TRANSFER AT 1810. SHE IS IMPULSIVE AND ONLY ALERT AND AWAKE, BUT ORIENTED X0. SHE IS A FEEDER AND SPEECH CAME TO CONFIRM THAT SHE NEEDS MECH CHOPPED AND INCREASED HER FROM HONEY THICK TO NECTAR THICK. BED ALARM IS ON AND ISOLATION IS MAINTAINED. THE RED LINE ON THE PICC LINE DOESN'T FLUSH OR DRAW. SHE IS SINUS RHYTHM WHILE SHE IS AWAKE, BUT IS VERY ADILIA WHEN SLEEPING (30-40'S). WILL CONTINUE TO MONITOR.
[2020-01-30 23:50] VITALS: BP 144/77
[2020-01-31 09:00] VITALS: BP 148/84
[2020-01-31 12:02] VITALS: BP 135/70
--- NOTE | 2020-01-31 14:39 | NUR ---
Pt on RA. Bipap at NOC. Updated Dr that LTACs are full. Covid positive.
[2020-01-31 16:53] VITALS: BP 127/84
[2020-01-31 20:00] VITALS: BP 159/68
--- NOTE | 2020-01-31 20:39 | NUR ---
Pt appears to be in no distress. Alert and cooperative. Tics and tremors, and makes mouth noises. On RA until afternoon when SaO2 upper 80s. NC placed at 2L, which brought SaO2 up to mid 90s. VSS. HR 40s-50s following dose of diltiazem and coreg. Will continue to monitor.
[2020-02-01] VITALS: BP 126/57
[2020-02-01 04:00] VITALS: BP 126/56
[2020-02-01 04:58] LABS: ABSOLUTE LYMPHOCYTES 0.7 thou/uL (0.8-5.3); ABSOLUTE MONOCYTES 0.2 thou/uL (0.0-1.2); ABSOLUTE NEUTROPHILS 8.8 thou/uL (1.6-8.1); BASOPHILS 0.4 %; HEMATOCRIT 29.7 % (37.0-47.0); HEMOGLOBIN 9.8 gm/dL (12.0-15.0); LYMPHOCYTES 6.7 %; MCH 31.8 pg (26.0-34.0); MCHC 33.1 g/dL (28.0-37.0); MCV 96.1 fL (80.0-100.0); MONOCYTES 2.4 %; MPV 9.6 fl. (7.2-11.1); NUCLEATED RBCS 0 /100WBC; PLATELET COUNT* 126 thou/uL (150-400); POLYS 90.5 %; RBC 3.09 mil/uL (4.20-5.00); RDW-CV 16.3 % (10.5-14.5); WBC 9.8 thou/uL (4.0-11.0)
[2020-02-01 05:34] LABS: CALCIUM 8.5 mg/dL (8.5-10.1); MAGNESIUM 2.3 mg/dL (1.8-2.4); POTASSIUM 4.9 mmol/L (3.5-5.1)
[2020-02-01 10:15] VITALS: BP 145/61
[2020-02-01 14:21] VITALS: BP 131/92
[2020-02-01 20:00] VITALS: BP 126/56
[2020-02-02] VITALS (7 sets, daily range): BP systolic 96–153; BP diastolic 49–76
[2020-02-02 07:27] LABS: ALBUMIN 2.6 g/dL (3.4-5.0); CALCIUM 8.6 mg/dL (8.5-10.1); CREATININE 0.9 mg/dL (0.6-1.3); MAGNESIUM 2.2 mg/dL (1.8-2.4); POTASSIUM 4.7 mmol/L (3.5-5.1); TOTAL BILIRUBIN 0.7 mg/dL (<0.1-1.0); TOTAL PROTEIN 5.5 g/dL (6.4-8.2)
--- NOTE | 2020-02-02 18:31 | NUR ---
A&OX 1, FORGETFUL. CAN ANSWER YES AND NO QUESTIONS. FROM [facility]. PICC LINE-DOUBLE LUMEN IN RIGHT UPPER ARM AND DRESSING CHANGED TODAY. Q 2 TURN. NO SKIN ISSUES NOTED EXCEPT BRUISING. LUNGS CLEAR UPPER LOBES AND DIMINISHED LOWER LOBES. ON 2L PER NC. HAD MODERATE BROWN, SOFT, BM TODAY. AFEBRILE ALL DAY. CARDIAC RHYTHM AFIB THIS AM THEN WENT TO SB THEN BACK TO A-FIB. DOES HAVE TARDIVE DYSKINESIA. [facility] CALLED TO CHECK UP ON HER TODAY AND SAID THAT WAS NORMAL FOR PATIENT. WILL CONTINUE TO MONITOR.
--- NOTE | 2020-02-02 18:59 | NUR ---
JUAREZ CATH INTACT AND PATENT OF CLEAR MARELY URINE. WILL CONTINUE TO MONITOR.
[2020-02-03] VITALS: BP 94/59
--- NOTE | 2020-02-03 06:46 | NUR ---
PATIENT HAS RESTED OFF AND ON DURING THE NIGHT. VSS ON 2L 02 VIA NASAL CANNULA. PATIENT REMAINS IN ENHANCED PRECAUTIONS FOR POSITIVE COVID-19. PATIENT NOT WANTING BI-PAP ON THIS AM AND IT WAS REMOVED AT APPROXIMATELY 0400. JUAREZ TO DEPENDENT DRAINAGE WITH MARELY COLORED URINE OUTPUT. MEDICATIONS ADMINISTERED ORDERED AND CHARTED. PATIENT TAKES MEDS WITH PUDDING. PICC LINE TO RIGHT UPPER ARM-SL. FALL PRECAUTIONS IN PLACE AND HOURLY ROUNDS MADE. WILL CONTINUE WITH PLAN OF CARE AND NURSING TO MONITOR.
[2020-02-03 08:00] VITALS: BP 140/73
--- NOTE | 2020-02-03 10:44 | NUR ---
[facility] CM updated [facility] at [facility] and will fax dc orders once available. CM updated Pt's sister of POC. Chart copied. Nurse report number is [phone]. Ambulance to draft roller picker and transport at 2pm.
[2020-02-03] MEDS ORDERED: LANOXIN 0.25M0.25 M1 PO (11:25)
[2020-02-03] MEDS ORDERED: BROVANA15 MCG/2 M INH (11:25)
[2020-02-03] MEDS ORDERED: CARVEDILOL12.5 MG PO (11:26)
[2020-02-03] MEDS ORDERED: DEXAMETHASONE 44 M1 PO (11:27)
[2020-02-03] MEDS ORDERED: PEPCID40 MG PO (11:28)
[2020-02-03 12:00] VITALS: BP 116/72
== END 2020-02-03 14:24 | disposition home or self-care (01) | DRG 871 ==
LOC: M.ERS 11:58 → M.TBA-ER 14:28 → M.2W 14:28 → M.ICU 01-22 14:35 → M.2W 01-30 18:12
PROVIDERS: Internal Medicine; Internal Medicine Critical Care Medicine; Personal Emergency Response Attendant; ADMIT Internal Medicine; ATTEND Internal Medicine
PROC: XW033E5 Introduction of Remdesivir Anti-infective into Peripheral Vein, Percutaneous Approach, New Technology Group 5 (ICD-10-PCS; principal; 2020-01-21)
PROC: 5A09357 Assistance with Respiratory Ventilation, Less than 24 Consecutive Hours, Continuous Positive Airway Pressure (ICD-10-PCS; principal; 2020-01-21)
PROC: 5A09357 Assistance with Respiratory Ventilation, Less than 24 Consecutive Hours, Continuous Positive Airway Pressure (ICD-10-PCS; 2020-01-22)
PROC: 02HV33Z Insertion of Infusion Device into Superior Vena Cava, Percutaneous Approach (ICD-10-PCS; 2020-01-23)
PROC: B548ZZA Ultrasonography of Superior Vena Cava, Guidance (ICD-10-PCS; 2020-01-23)
PROC: 5A09357 Assistance with Respiratory Ventilation, Less than 24 Consecutive Hours, Continuous Positive Airway Pressure (ICD-10-PCS; 2020-01-23)
PROC: 5A09357 Assistance with Respiratory Ventilation, Less than 24 Consecutive Hours, Continuous Positive Airway Pressure (ICD-10-PCS; 2020-01-24)
PROC: 5A09357 Assistance with Respiratory Ventilation, Less than 24 Consecutive Hours, Continuous Positive Airway Pressure (ICD-10-PCS; 2020-01-25)
PROC: 5A09357 Assistance with Respiratory Ventilation, Less than 24 Consecutive Hours, Continuous Positive Airway Pressure (ICD-10-PCS; 2020-01-26)
PROC: 5A09357 Assistance with Respiratory Ventilation, Less than 24 Consecutive Hours, Continuous Positive Airway Pressure (ICD-10-PCS; 2020-01-27)
PROC: 5A09357 Assistance with Respiratory Ventilation, Less than 24 Consecutive Hours, Continuous Positive Airway Pressure (ICD-10-PCS; 2020-01-28)
PROC: 5A09357 Assistance with Respiratory Ventilation, Less than 24 Consecutive Hours, Continuous Positive Airway Pressure (ICD-10-PCS; 2020-01-29)
PROC: 5A09357 Assistance with Respiratory Ventilation, Less than 24 Consecutive Hours, Continuous Positive Airway Pressure (ICD-10-PCS; 2020-01-30)
PROC: 5A09357 Assistance with Respiratory Ventilation, Less than 24 Consecutive Hours, Continuous Positive Airway Pressure (ICD-10-PCS; 2020-01-31)
PROC: 5A09357 Assistance with Respiratory Ventilation, Less than 24 Consecutive Hours, Continuous Positive Airway Pressure (ICD-10-PCS; 2020-02-01)
PROC: 5A09357 Assistance with Respiratory Ventilation, Less than 24 Consecutive Hours, Continuous Positive Airway Pressure (ICD-10-PCS; 2020-02-02)
PROC: 5A09357 Assistance with Respiratory Ventilation, Less than 24 Consecutive Hours, Continuous Positive Airway Pressure (ICD-10-PCS; 2020-02-03)
DX: A41.89 Other specified sepsis (principal); U07.1 COVID-19; J96.01 Acute respiratory failure with hypoxia; J15.6 Pneumonia due to other Gram-negative bacteria; J12.89 Other viral pneumonia; J96.02 Acute respiratory failure with hypercapnia; I48.20 Chronic atrial fibrillation, unspecified; E87.0 Hyperosmolality and hypernatremia; G25.9 Extrapyramidal and movement disorder, unspecified; G40.909 Epilepsy, unspecified, not intractable, without status epilepticus; J45.909 Unspecified asthma, uncomplicated; F79 Unspecified intellectual disabilities; E87.70 Fluid overload, unspecified; D69.6 Thrombocytopenia, unspecified; R79.89 Other specified abnormal findings of blood chemistry; T38.0X5A Adverse effect of glucocorticoids and synthetic analogues, initial encounter; Z88.8 Allergy status to other drugs, medicaments and biological substances; Y92.89 Other specified places as the place of occurrence of the external cause; Z99.81 Dependence on supplemental oxygen; Z23 Encounter for immunization